=== PATIENT | female | born 1945 | race Caucasian/White ===

== ENCOUNTER → 2020-05-22 | Outpatient (CLI) | payer OTHER ==
[~2020-05-22] MED LIST: CENTRUM SILVER1 EAC6 PO; CITALOPRAM HBR40 MG PO; CLONAZEPAM 0.50.5 M1 PO; CO-ENZYME Q-1010 MG PO; FLUTICASONE PRO16 GM NASAL; ROSUVASTATIN CAL5 MG PO; TACROLIMUS30 G1; VITAMIN D3100 MCG PO
== END ==
LOC: LAB 11:46
PROVIDERS: ATTEND Ophthalmology
DX: Z01.812 Encounter for preprocedural laboratory examination (principal); Z20.822 Contact with and (suspected) exposure to COVID-19

== ENCOUNTER 2020-05-25 06:10 | Day surgery (SDC) | payer OTHER ==
[~2020-05-25] VITALS: Ht 167.6 cm; Wt 65.3 kg
[2020-05-25 07:36] VITALS: BP 132/66
--- NOTE | 2020-05-29 06:20 | O ---
[facility] [place] [address] OPERATIVE REPORT Name: CHRISTIANNE MARTIN Room #: DEP [facility].#: [id number] Admission: 05/25/20 Attend Phys: Kulwinder Wu MD Discharge: 05/25/20 Date of : 45 Report #: [id number] THIS REPORT FOR: cc: RAINA FERGUSON Physician not on staff Kulwinder Wu MD ~ DATE OF SERVICE: 05/25/2020 SURGEON: Kulwinder Wu MD CHILD HEALTH ASSOCIATE: None. PREOPERATIVE DIAGNOSIS: Bilateral lower lid ectropion. POSTOPERATIVE DIAGNOSIS: Bilateral lower lid ectropion. OPERATION PERFORMED: Bilateral lower lid ectropion repair. ANESTHESIA: Local with IV sedation. COMPLICATIONS: None. INDICATIONS FOR PROCEDURE: This patient has bilateral acquired lower lid ectropion with chronic tearing, keratopathy and discharge. The current procedures are undertaken in order to improve the patient's visual function, lacrimal outflow, and level of comfort. Informed consent was obtained to include but not limit to the risk of loss of vision, bleeding, infection, scarring, failure to improve the problem and need for further surgery. DESCRIPTION OF OPERATION: The patient was taken to the operating room where 2% Xylocaine with epinephrine mixed with equal parts of 0.75% Marcaine with Wydase was administered transcutaneously and transconjunctivally to each lower lid and lateral canthal area. The patient was then prepped and draped in the usual sterile fashion. A Staci clamp was then used to clamp the left lateral canthus following which a sharp canthotomy and cantholysis were performed. The tarsal strip was prepared laterally, removing the lash bearing portion of the redundant lid margin and the redundant tarsal plate. Hemostasis was achieved with a monopolar cautery, as it was throughout the case. The tarsal strip was then secured to the internal portion of the lateral orbital tubercle with two interrupted 5-0 Prolene sutures. The lateral canthal angle was sharply reformed as the subcutaneous structures and the skin were closed with multiple interrupted 6-0 plain gut sutures. Attention was then turned to the right side where the same procedure was performed. The wounds were cleaned and dressed with ophthalmic antibiotic [facility] [address] [place] [address] OPERATIVE REPORT Name: CHRISTIANNE MARTIN Room #: DEP [facility]#: [id number] Admission: 05/25/20 Attend Phys: Kulwinder Wu MD Discharge: 05/25/20 Date of : 45 Report #: [id number] ointment. The patient was then transported to the recovery area, having tolerated the procedure well with no anesthetic or operative complications being noted. <ELECTRONICALLY SIGNED> By: Kulwinder Wu MD 05/29/20 0620 [id number] Kulwinder Wu MD /nt
== END 2020-05-25 09:32 | disposition home or self-care (01) ==
LOC: TBA 06:10 → OR 06:10 → TBA 06:12 → OR 09:32
PROVIDERS: ATTEND Ophthalmology
DX: H02.102 Unspecified ectropion of right lower eyelid (principal); H02.105 Unspecified ectropion of left lower eyelid; E78.5 Hyperlipidemia, unspecified; F32.9 Major depressive disorder, single episode, unspecified; F41.9 Anxiety disorder, unspecified; Z98.890 Other specified postprocedural states; Z79.899 Other long term (current) drug therapy
CPT/HCPCS: 50010; 50101; 50386; 50398; 51636; 56527; 56531; 62110; 62850; 70005

== ENCOUNTER 2020-12-28 06:44 | Day surgery (SDC) | payer OTHER ==
[~2020-12-28] VITALS: Ht 167.6 cm; Wt 66.7 kg
--- NOTE | ~2020-12-28 | O ---
[facility] [place] [address] OPERATIVE REPORT Name: CHRISTIANNE MARTIN Room #: 150-6 [facility]..#: [id number] Admission: 12/28/20 Attend Phys: Kulwinder Wu MD Discharge: Date of : 45 Report #: [id number] THIS REPORT FOR: cc: RAINA FERGUSON not on staff Kulwinder Wu MD ~ cc: Robinson Morrison MD, [facility] DATE OF SERVICE: 12/28/2020 BODY ARTIST: None. PREOPERATIVE DIAGNOSIS: Bilateral upper lid ptosis with superior visual field defects both eyes. POSTOPERATIVE DIAGNOSIS: Bilateral upper lid ptosis with superior visual field defects both eyes. OPERATION PERFORMED: Bilateral upper lid functional ptosis repair. BODY ARTIST: None. ANESTHESIA: Local with IV sedation. COMPLICATIONS: None. INDICATIONS FOR PROCEDURE: This patient has bilateral upper lid ptosis with superior visual field loss both eyes. Visual field testing demonstrates dense superior visual defects. Retesting with the upper lid elevated shows an improvement in visual field loss of over 30% and in excess of 12 degrees. The current procedure is being undertaken in order to improve the patient's visual function. Informed consent was obtained to include but not limited to the risk of loss of vision, bleeding, infection, scarring, failure to improve the problem and need for further surgery, such as adjustment of lid height. DESCRIPTION OF PROCEDURE: The patient was taken to the operating room, where 2% Xylocaine with epinephrine mixed with equal parts of 0.75% Marcaine with Wydase was administered transcutaneously to each upper lid. The patient was then prepped and draped in the usual sterile fashion. An upper lid crease incision was then made bilaterally and the dissection was carried down until the orbital septum was identified. The orbital septum was then cleared and the preaponeurotic fat identified. The levator aponeurosis was then disinserted from the anterior surface of the tarsal plate and dissected [address] [address] OPERATIVE REPORT Name: CHRISTIANNE MARTIN Room #: 150-6 [facility]..#: [id number] Admission: 12/28/20 Attend Phys: Kulwinder Wu MD Discharge: Date of : 45 Report #: [id number] free in the avascular Viera's muscle plane. The aponeurosis was then advanced and reattached to the anterior surface of the tarsal plate with interrupted mattress 6-0 Novafil sutures on each side, adjusting for height and contour. The redundant aponeurosis was then amputated. The incision was then closed with multiple interrupted 6-0 chromic sutures that were used to recreate an upper lid crease. The skin was closed with a running 6-0 plain gut suture. The wound was then cleaned and dressed with ophthalmic antibiotic ointment followed by a Telfa pad. The patient was transported to the recovery area, having tolerated the procedure well with no anesthesia or operative complications being noted. By: [id number] Kulwinder Wu MD /deb
[~2020-12-28 06:44] MED LIST changes: +CLEAR LAX PO; +DESVENLAFAXINE25 MG PO
[2020-12-28 08:30] VITALS: BP 127/68
== END 2020-12-28 10:25 | disposition home or self-care (01) ==
LOC: OR 06:44 → TBA 06:44 → OR 09:47
PROVIDERS: ATTEND Ophthalmology
DX: H02.413 Mechanical ptosis of bilateral eyelids (principal); H53.462 Homonymous bilateral field defects, left side; H53.461 Homonymous bilateral field defects, right side; E78.5 Hyperlipidemia, unspecified; F32.9 Major depressive disorder, single episode, unspecified; F41.9 Anxiety disorder, unspecified; Z98.890 Other specified postprocedural states; Z79.899 Other long term (current) drug therapy; Z20.822 Contact with and (suspected) exposure to COVID-19
CPT/HCPCS: 50010; 50101; 50386; 50398; 51636; 56528; 56531; 62110; 62850; 70005